=== PATIENT | female | born 1985 | race Caucasian/White ===

== ENCOUNTER 2016-07-11 20:55 | Emergency (ER) | payer BC, OTHER ==
[2016-07-11] MEDS ORDERED: DIPHTH,PERTUSS(ACELL),TET VAC 0.5 ML VIAL IM ONE (20:58)
[2016-07-11 21:01] VITALS: BP 149/92; PULSE 124; TEMP 97.3; BMI 29.2
--- NOTE | 2016-07-11 21:01 | PDOC ---
Rapid Medical Evaluation Chief Complaint: Bite Time Seen by Provider: 07/11/16 20:58 Medical Evaluation: 07/11/16 20:59 I have performed a brief in-person evaluation of this patient. The patient presents with a chief complaint of: dog bite by her vaccinated bulldog Pertinent physical exam findings: complex lac. x 2 to rt posterior calf. Unknown last tetanus. No neuro deficit, No sensory deficit. able to dorsiflex rt foot I have ordered the following: tdap The pt will go to the main ED.
--- NOTE | 2016-07-11 21:38 | PDOC ---
History of Present Illness - General Chief Complaint: Bite Stated Complaint: DOG BITE Time Seen by Provider: 07/11/16 20:58 History Source: Patient Exam Limitations: No Limitations - History of Present Illness Occurred: reports: just prior to arrival Lower Extremity Pain Location: right: other (calf) Method of Injury: Yes: other (vaccinated bulldog; belongs to pt) Lower Ext. Injury Location - Specific Injury Location Legs: right: other (calf; 8cm horiz lac/6cm lac) Extremity Pain Location - Extremity Pain Location Extremity Pain Locations: right: other (calf/lacs (2)) Past History - Travel Traveled outside of the country in the last 30 days: No Close contact w/someone who was outside of country & ill: No - Past Medical History Allergies/Adverse Reactions: Allergies Allergy/AdvReac Type Severity Reaction Status Date / Time No Known Allergies Allergy Verified 07/11/16 21:01 Home Medications: Ambulatory Orders Albuterol Sulfate Inhaler - [Ventolin HFA Inhaler -] PRN 07/11/16 Amoxicillin/Potassium Clav [Augmentin 875-125 Tablet] 1 each PO BID #14 tablet 07/11/16 Beclomethasone Dipropionate [Qvar] 8.7 gm IH DAILY 07/11/16 Cetirizine HCl [Zyrtec -] 10 mg PO DAILY PRN 07/11/16 - Psycho/Social/Smoking Cessation Hx Anxiety: No Suicidal Ideation: No Smoking History: Never smoked Have you smoked in the past 12 months: No Information on smoking cessation initiated: No Hx Alcohol Use: No Drug/Substance Use Hx: No Substance Use Type: None Review of Systems - Review of Systems Integumentary: Yes: Other (right calf lacs). No: Bruising, Change in Color, Erythema, Pallor, Rash, Sweating *Physical Exam - Vital Signs Last Vital Signs Temp Pulse Resp BP Pulse Ox 97.3 F L 124 H 21 149/92 100 07/11/16 20:58 07/11/16 20:58 07/11/16 20:58 07/11/16 20:58 07/11/16 20:58 - Physical Exam Comments: 07/11/16 21:35 Right calf 8cm horizontal lac to lower/mid calf 6 cm oblique lac neg active bleed +Pain on palp Right foot: 2+pedal pulse Procedure to right calf: 12cm horizontal lac 8cm oblique lac Betadine prep 1% lidocaine 10cc NS irrigation copious 10cm lac; (7) 4.0 nylon loose approximation 8cm lac; (6) 4.0 nylon loose approximation telfa kerlix (2) pw to ant harris 4cm lac to mid ant harris Betadine prep 1% lidocaine; 4cc Ns irrigation; copious (3) 4.0 nylon loose approximation telfa kerlix 07/12/16 01:17 ED Treatment Course - Medications Given in the ED: ED Medications Discontinued Medications Generic Name Dose Route Start Last Admin Trade Name Freq PRN Reason Stop Dose Admin Diphtheria/Tetanus/Acell Pertussis 0.5 ml 07/11/16 20:58 07/11/16 21:19 Adacel Adolescent/Adult - IM 07/11/16 20:59 0.5 ml .ONCE ONE Administration Progress Note - Progress Note Progress Note: 30-year-old female presents to the emergency department complaining of 2 gaping lacerations to her right calf after her vaccinated dog bit her. Patient states HER-2 dogs were fighting, when she attempted to intercede, patient got bit. Patient denies any extremity numbness or tingling sensation. Unknown last tetanus. Patient was informed that due to the size of her lacerations, I will be putting loose approximation sutures. Patient insists on being seen by a plastic surgeon. 2135hrs; Called Dr. Mg/Plastics [phone] Mg x2; He will f/u with pt tomorrow. Loose approximation after NS copious irrigation *DC/Admit/Observation/Transfer Diagnosis at time of Disposition: Laceration of right calf without complication Qualifiers: Encounter type: initial encounter Qualified Code(s): S81.811A - Laceration without foreign body, right lower leg, initial encounter - Prescriptions Prescriptions: Amoxicillin/Potassium Clav [Augmentin 875-125 Tablet] 1 each PO BID #14 tablet - Referrals Referrals: Karan Mg MD [Staff Physician] - - Patient Instructions Printed Discharge Instructions: How to Care for a Domestic Animal Bite Additional Instructions: Keep the incision clean and dry for 24 hours. After 24 hours, you may allow the soap and water to rinse off your incision. Avoid direct pressure of the water to the incision. Pat the incision dry with a clean clothe. Apply a small amount of bacitracin onto the incision. Cover the incision loosely with a bandaid. Take tylenol/motrin as needed for pain. Follow up with your physician or the ER in 48 hours for a wound check. Return to the ER if you notice red streaks, increase redness/swelling/severe pain to the incision. Suture removal in 12 days. Augmentin as prescribed Follo wup with Dr. Mg/plastics
[2016-07-11] MEDS ORDERED: AMOX TR/POT CLAV 875MG/125MG TABLETS (FP) PO ONE (21:39)
[2016-07-11] MEDS ORDERED: AMOX TR/POT CLAV 875MG/125MG TABLETS (FP) ONE (22:02)
[2016-07-11] MEDS ORDERED: LIDOCAINE HCL/PF 1% SDV 5ML VIAL ONE (22:03)
--- NOTE | 2016-07-11 22:19 | PDOC ---
*Physical Exam - Vital Signs Last Vital Signs Temp Pulse Resp BP Pulse Ox 97.3 F L 124 H 21 149/92 100 07/11/16 20:58 07/11/16 20:58 07/11/16 20:58 07/11/16 20:58 07/11/16 20:58 ED Treatment Course - Medications Given in the ED: ED Medications Discontinued Medications Generic Name Dose Route Start Last Admin Trade Name Manas PRN Reason Stop Dose Admin Amoxicillin/Clavulanate Potassium 1 tab 07/11/16 21:39 07/11/16 21:52 Augmentin - 875mg Tablet PO 07/11/16 21:40 1 tab ONCE ONE Administration Diphtheria/Tetanus/Acell Pertussis 0.5 ml 07/11/16 20:58 07/11/16 21:19 Adacel Adolescent/Adult - IM 07/11/16 20:59 0.5 ml .ONCE ONE Administration Medical Decision Making - Medical Decision Making 07/11/16 22:18 agree with care from DELFIN Tobin *DC/Admit/Observation/Transfer Diagnosis at time of Disposition: Laceration of right calf without complication Qualifiers: Encounter type: initial encounter Qualified Code(s): S81.811A - Laceration without foreign body, right lower leg, initial encounter - Prescriptions Prescriptions: Amoxicillin/Potassium Clav [Augmentin 875-125 Tablet] 1 each PO BID #14 tablet - Referrals Referrals: Tee Fernández MD [Staff Physician] - - Patient Instructions Printed Discharge Instructions: How to Care for a Domestic Animal Bite Additional Instructions: Keep the incision clean and dry for 24 hours. After 24 hours, you may allow the soap and water to rinse off your incision. Avoid direct pressure of the water to the incision. Pat the incision dry with a clean clothe. Apply a small amount of bacitracin onto the incision. Cover the incision loosely with a bandaid. Take tylenol/motrin as needed for pain. Follow up with your physician or the ER in 48 hours for a wound check. Return to the ER if you notice red streaks, increase redness/swelling/severe pain to the incision. Suture removal in 12 days. - Post Discharge Activity
== END 2016-07-12 01:35 | disposition home or self-care (01) ==
LOC: JER 20:55 → SUPCPDRO 20:55 → JER 07-12 01:35
PROC: 0HQKXZZ Repair Right Lower Leg Skin, External Approach (ICD-10-PCS; principal; 2016-07-11)
DX: S81.811A Laceration without foreign body, right lower leg, initial encounter (principal); W54.0XXA Bitten by dog, initial encounter; Y93.89 Activity, other specified; Y92.009 Unspecified place in unspecified non-institutional (private) residence as the place of occurrence of the external cause
CPT/HCPCS: 99282-25